=== PATIENT | female | born 1990 | race Caucasian/White ===

== ENCOUNTER 2018-02-13 20:59 | Emergency (ER) | payer OTHER ==
[~2018-02-13] VITALS: Ht 165.1 cm; Wt 68.1 kg
[2018-02-13 21:54] LABS: BASOPHIL (%) 0.2 % (0-1); BASOPHIL COUNT 0.1 K/uL (0-0.1); EOSINOPHIL (%) 0 % (0-5); HEMATOCRIT 46.6 % (36.0-46.0); HEMOGLOBIN 16.3 G/DL (11.9-15.5); IMMATURE GRANULOCYTE (%) 0.7 % (0.0-0.7); LYMPHOCYTE (%) 6.3 % (15-42); LYMPHOCYTE COUNT 1.3 K/uL (1.0-2.8); MCH 30.4 PG (29.0-34.0); MCV 86.8 FL (83-99); MONOCYTE (%) 5.3 % (3-12); MONOCYTE COUNT 1.1 K/uL (0-0.8); NEUTROPHIL (%) 87.5 % (45-76); NEUTROPHIL COUNT 18.1 K/uL (1.8-6.4); PLATELET COUNT 319 K/uL (156-360); RBC DIS.WIDTH-CV 11.9 % (11.8-14.6); RBC DIS.WIDTH-SD 38.1 % (39-53); RED BLOOD COUNT 5.37 M/uL (3.80-5.20); WHITE BLOOD COUNT 20.7 K/uL (4.1-10.2)
[2018-02-13 22:07] LABS: ALBUMIN 4.8 g/dL (3.2-4.8); CHLORIDE 104 mEq/L (99-109); POTASSIUM 3.3 mEq/L (3.7-5.4); SODIUM 140 mEq/L (136-147)
[2018-02-13 22:10] LABS: GLUCOSE 161 mg/dL (70-99); TOTAL PROTEIN 7.6 g/dL (6.4-8.3)
[2018-02-13 22:12] LABS: TOTAL BILIRUBIN 1.4 mg/dL (0.0-1.0)
[2018-02-13 22:13] LABS: ALKALINE PHOSPHATASE 111 IU/L (3-129); CREATININE 0.9 mg/dL (0.6-1.3); GFR ESTIMATE (CALCULATED) > 59 mL/min/
[2018-02-13 22:15] LABS: AST (GOT) 12 IU/L (2-34); DIRECT BILIRUBIN 0.4 mg/dL (0.0-0.3); UREA NITROGEN (BUN) 15 mg/dL (9-23)
[2018-02-13 22:16] LABS: ALT (GPT) 12 IU/L (3-49)
[2018-02-13 22:17] LABS: LIPASE 38 U/L (1.0-51.0)
[2018-02-13 22:22] LABS: QUANTITATIVE HCG < 4.0 MIU/ML
[2018-02-14] MEDS ORDERED: TRAZODONE HCL50 MG PO (00:15)
[2018-02-14] MEDS ORDERED: CATAPRES0.1 MG PO (00:15)
[2018-02-14 01:38] VITALS: BP 139/106
== END 2018-02-14 01:41 | disposition home or self-care (01) ==
LOC: EME → EDBD 20:59 → EME 20:59
PROVIDERS: Emergency Medicine
DX: R11.2 Nausea with vomiting, unspecified (principal); E86.0 Dehydration; R93.5 Abnormal findings on diagnostic imaging of other abdominal regions, including retroperitoneum; F17.200 Nicotine dependence, unspecified, uncomplicated; Z88.0 Allergy status to penicillin
CPT/HCPCS: 74177; 80048; 80076; 81003; 83690; 84702; 85025; 99281; 99285; J1630; J2765; J7030